=== PATIENT | male | born 1995 | race Two or more races ===

== ENCOUNTER 2023-02-06 03:52 | Emergency (ER) | payer OTHER ==
[~2023-02-06] VITALS: Ht 167.6 cm; Wt 80.4 kg
[2023-02-06] MEDS ORDERED: PERTUSS(ACELL),DIPH,TET VAC/PF 0.5 ML SYRINGE IM. ONE (05:00)
[2023-02-06 05:53] VITALS: BP 124/77
== END 2023-02-06 05:53 | disposition home or self-care (01) ==
LOC: EMS 03:54
DX: S21.011A Laceration without foreign body of right breast, initial encounter (principal); X58.XXXA Exposure to other specified factors, initial encounter; Y93.89 Activity, other specified; Y92.89 Other specified places as the place of occurrence of the external cause; Y99.8 Other external cause status
CPT/HCPCS: 12002; 90471; 90715; 99283

== ENCOUNTER 2023-03-19 15:45 | Emergency (ER) | payer OTHER ==
[~2023-03-19] VITALS: Ht 167.6 cm; Wt 75.9 kg
[2023-03-19 16:06] VITALS: BP 111/68
[2023-03-19] MEDS ORDERED: LIDOCAINE 1% 10 ML VIAL SQ ONE (16:45)
[2023-03-19] MEDS ORDERED: POVIDONE-IODINE 10% 120 ML SOLUTION TP ONE (16:45)
== END 2023-03-19 17:49 ==
LOC: EMS 15:47
DX: L02.416 Cutaneous abscess of left lower limb (principal)
CPT/HCPCS: 99283; 10060; J3490